=== PATIENT | female | born 1975 | race Caucasian/White ===

== ENCOUNTER 2018-06-29 09:08 | Inpatient (IN) ==
[2018-06-29] MEDS ORDERED: MAGNESIUM SULF RIDER 2 GM in PREMIX 1 EACH IV STA (10:28)
[2018-06-29] MEDS ORDERED: DILTIAZEM 50 MG/10 ML VIAL IV STA (10:28)
[2018-06-29 10:44] LABS: Basophils # 0.1 10*3/uL (0.0-0.2); Basophils % 0.4 % (0.0-0.8); Eosinophils # 0.1 10*3/uL (0.0-0.87); Eosinophils % 0.8 % (0.00-10.9); Hematocrit 38.8 VOL% (35.7-47.0); Immature Granulocytes % 0.7 %; Immature Granulocytes Absolute 0.08 #; Lymphocytes # 2.3 10*3/uL (1.4-4.0); Lymphocytes % 19.2 % (21.3-54.2); Mean Corpuscular HGB Conc 33.5 GM/DL (32-36); Mean Corpuscular Hemoglobin 29 PG (27-34); Mean Platelet Volume 9.1 FL (9.6-12.0); Monocytes # 0.7 10*3/uL (0.11-0.8); Monocytes % 5.6 % (1.7-12.7); Neutrophils # 8.7 10*3/uL (1.4-7.4); Neutrophils % 73.3 % (38.7-73.9); Platelet Count 395 T/CUMM (130-400); Red Blood Count 4.51 MC/CUMM (3.8-5.5); Red Cell Distribution Width 13.5 % (9.3-17.3); White Blood Count 11.9 T/CUMM (4-12)
[2018-06-29] MEDS ORDERED: DILTIAZEM 100 MG VIAL.ADD IV ONE (10:54)
[2018-06-29 10:57] LABS: PT Patient Result 10.1 SECS; Partial Thromboplastin Time 28.4 SECS (0-40)
[2018-06-29] MEDS: DILTIAZEM INJ 100 MG in SODIUM CHLORIDE 0.9% 100 ML IV SCH ×2 (11:06→17:52)
[2018-06-29 11:28] LABS: Alanine Aminotransferase 28 U/L (13-56); Albumin 4.5 G/DL (3.4-5.0); Alkaline Phosphatase 86 U/L (45-117); Aspartate Amino Transferase 17 U/L (0-37); Bilirubin,Total < 0.39 MG/DL (0.2-1.0); Blood Urea Nitrogen 8 MG/DL (7-18); Calcium 9.4 MG/DL (8.5-10.1); Glucose 102 MG/DL (74-106); Osmolality,Calculated 272.7 MOS/KG (273-304); Potassium 3.7 MMOL/L (3.5-5.1); Sodium 138 MMOL/L (136-145); Thyroid Stimulating Hormone 0.677 uIU/ml (0.358-3.74); Total Protein 8.9 G/DL (6.4-8.3)
[2018-06-29] MEDS ORDERED: LIDOCAINE 2% VISCOUS 100 ML BOTTLE ONE (12:22)
[2018-06-29 13:19] LABS: Barbiturates Screen,Urine Negative (Negative); Benzodiazepines Screen,Urine Negative (Negative); Cannabinoid Screen,Urine Negative (Negative); Opiate Screen,Urine Negative (Negative); Phencyclidine Screen,Urine Negative (Negative)
[2018-06-29] MEDS ORDERED: ACETAMINOPHEN 325 MG TABLET PO PRN (13:58)
[2018-06-29] MEDS ORDERED: ONDANSETRON 4 MG/2 ML VIAL IV PRN (13:58)
[2018-06-29] MEDS ORDERED: FEXOFENADINE 180 MG TABLET PO PRN (14:23)
[2018-06-29] MEDS ORDERED: tiZANidine 4 MG TABLET PO PRN (14:23)
[2018-06-29] MEDS ORDERED: ELETRIPTAN HBR 40 MG PO PRN (14:23)
[2018-06-29] MEDS ORDERED: DICYCLOMINE 10 MG CAPSULE PO PRN (14:23)
[2018-06-29] MEDS ORDERED: AMITRIPTYLINE 25 MG TABLET PO PRN (14:23)
[2018-06-29] MEDS ORDERED: PSEUDOEPHEDRINE 30 MG TABLET PO PRN (14:39)
[2018-06-29 17:44] LABS: Apearance,Urine CLEAR (Clear); Bacteria,Urine Occasional /HPF (Few); Bilirubin,Urine Negative (Negative); Blood, Urine Negative (Negative); Glucose,Urine (UA) Negative (Negative); Ketones,Urine Negative (Negative); Mucus,Urine Occasional /LPF (Occasional); Nitrite,Urine Negative (Negative); Protein,Urine Negative; RBC,Urine <1 /HPF (0-4); Squamous Epithelial Cell,Urine Occasional /HPF (0-10); Urine Color Yellow (Yellow); Urine Specific Gravity 1.008 (1.001-1.035); Urine Urobilinogen < 2.0 EU/DL (0.2-1.0)
[2018-06-29] MEDS ORDERED: ZALEPLON 5 MG CAPSULE PO PRN (21:37)
[2018-06-30] MEDS: DILTIAZEM INJ 100 MG in SODIUM CHLORIDE 0.9% 100 ML IV SCH (01:03)
[2018-06-30 04:20] LABS: Basophils # 0.1 10*3/uL (0.0-0.2); Basophils % 0.4 % (0.0-0.8); Eosinophils # 0.3 10*3/uL (0.0-0.87); Eosinophils % 2.2 % (0.00-10.9); Hematocrit 33.3 VOL% (35.7-47.0); Immature Granulocytes % 1.2 %; Immature Granulocytes Absolute 0.13 #; Lymphocytes # 3.2 10*3/uL (1.4-4.0); Lymphocytes % 28.3 % (21.3-54.2); Mean Corpuscular Hemoglobin 29 PG (27-34); Mean Corpuscular Volume 86.9 FL (87-102); Monocytes # 0.9 10*3/uL (0.11-0.8); Monocytes % 8.3 % (1.7-12.7); Neutrophils # 6.6 10*3/uL (1.4-7.4); Neutrophils % 59.6 % (38.7-73.9); Platelet Count 337 T/CUMM (130-400); Red Blood Count 3.83 MC/CUMM (3.8-5.5); Red Cell Distribution Width 13.9 % (9.3-17.3); White Blood Count 11.2 T/CUMM (4-12)
[2018-06-30 04:42] LABS: Calcium 8.3 MG/DL (8.5-10.1); Osmolality,Calculated 278.4 MOS/KG (273-304); Potassium 3.6 MMOL/L (3.5-5.1)
[2018-06-30] MEDS ORDERED: DULoxetine 30 MG CAPSULE PO SCH ×2 (09:00→09:30)
[2018-06-30] MEDS ORDERED: PANTOPRAZOLE 40 MG TABLET PO SCH (09:00)
[2018-06-30] MEDS ORDERED: METOPROLOL TARTRATE 25 MG TABLET PO SCH (16:00)
[2018-06-30 16:32] VITALS: BP 131/88
[2018-07-01] MEDS ORDERED: PANTOPRAZOLE 40 MG TABLET PO SCH (09:00)
[2018-07-03] MEDS ORDERED: BUPRENORPHINE TRANSDERM SCH (09:05)
== END 2018-06-30 18:30 | disposition home or self-care (01) | DRG 310 ==
LOC: N.ED 09:08 → N.EDINP 12:58 → N.2W 14:31 → N.TELEN 16:12